=== PATIENT | female | born 1990 | race Two or more races ===

== ENCOUNTER 2017-09-16 16:51 | Emergency (ER) | payer OTHER ==
[~2017-09-16] VITALS: Ht 157.5 cm; Wt 111.1 kg
[2017-09-16 19:55] VITALS: BP 133/82
== END 2017-09-16 21:00 | disposition home or self-care (01) ==
LOC: ER 16:51
DX: S90.212A Contusion of left great toe with damage to nail, initial encounter (principal); W18.39XA Other fall on same level, initial encounter; Y93.89 Activity, other specified; Y92.89 Other specified places as the place of occurrence of the external cause; Y99.8 Other external cause status
CPT/HCPCS: 73630; 99284; L3260